=== PATIENT | male | born 1945 | race African-American/Black ===

== ENCOUNTER 2017-12-19 13:56 | Outpatient (CLI) | payer MEDICARE, MEDICAID ==
--- NOTE | 2017-12-19 16:40 | RAD ---
CHEST TWO VIEWS: HISTORY: Dyspnea. COMPARISON: 11/05/2014 FINDINGS: Stable emphysematous changes. Stable configuration of the cardiac silhouette. The lungs and pleural spaces are clear. No pneumothorax. IMPRESSION: No acute interval change. POS: PRADIP
== END 2017-12-19 13:57 | disposition home or self-care (01) ==
LOC: RAD 13:56
PROVIDERS: ATTEND Internal Medicine Pulmonary Disease
DX: R06.00 Dyspnea, unspecified (principal)
CPT/HCPCS: 71046